=== PATIENT | male | born 1970 | race Caucasian/White ===

== ENCOUNTER 2024-10-12 08:52 | Outpatient (AMB) | payer OTHER, SELFPAY ==
--- NOTE | 2024-10-12 09:14 | MHC.OFFVIS ---
Vital Signs 10/12/24 09:22 Height 5 ft 8 in Weight 259 lb 6 oz BMI 39.4 BP 170/70 H Blood Pressure Location Lt brachial Position Sitting Pulse 85 Pulse Source Pulse Oximeter Pulse Oximetry (%) 95 Oxygen Delivery Method Room Air Intake Visit Reasons: ENP-UPPER EXTREMITIES NEUROPATHY Intake Note: Patient referred by Maria Elena for neuropathy of upper extremities Process Plant Operator Required: No Accompanied by: Self / Same As Patient Allergies clonidine Allergy (Mild, Verified 10/12/24 09:22) Dizziness phenytoin Allergy (Mild, Verified 10/12/24 09:22) Unknown penicillin Allergy (Unknown, Uncoded 02/07/24 08:27) Unknown Medication List - Last Reconciled 10/12/24 by Jackie Washburn MD albuterol sulfate 90 mcg/actuation 1 inh inhalation QID aspirin 81 mg PO DAILY citalopram 40 mg PO DAILY cyclobenzaprine 5 mg PO BEDTIME PRN dulaglutide 1.5 mg subcut QWEEK fluticasone propionate 110 mcg/actuation 1 puff inhalation BID glipizide ER 5 mg PO DAILY oxcarbazepine 150 mg PO DAILY pregabalin (Lyrica) 150 mg PO BID quetiapine 100 mg PO DAILY rosuvastatin 5 mg PO DAILY valsartan 80 mg PO DAILY HPI Comments Details: 54y/o male with h/o obesity , diabetes, HTN, smoking, h/o alcohol use, AYANNA not on CPAP, hyperlipidemia comes for further management of neuropathy. He was diagnosed with diabetes in 2012 and neuropathy [address] Reyna. He reports shooting pains in his feet , hands and also numbness. These symptoms are worse when he is resting . He takes lyrica and it helps. He also reports sharp pain in his feet , neck , hands and makes him jump . It wakes him up form sleep sometimes. The symptoms starts at 8 pm when is resting.He alps has leg movements at night- says he moves around a lot in bed and has leg spasms He feels better when he moves. He also has muscles cramps at rest that resolves with movement . he was diagnosed with sleep apnea in 2016 but could not use CPAP..He has gasping arousals, winessed apneas. loud snoring , excessive daytime sleepiness. [facility] Medical History (Updated 10/12/24 @ 10:05 by Jackie Washburn MD) Neuropathy Periodic limb movement disorder Restless legs syndrome (RLS) GERD without esophagitis AYANNA (obstructive sleep apnea) Anxiety Depression Guthrie's palsy Epilepsy History of bone marrow suppression Alcohol abuse Hyperlipidemia Severe obesity Benign essential HTN Diabetes mellitus Peripheral neuropathy Surgical History H/O thumb surgery H/O abdominal surgery S/P rotator cuff repair Family History Mother Ovarian ca Diabetes Thyroid disease Anxiety Bursitis Brother Myocardial infarct Social History Alcohol intake: former Patient Tobacco Use Status: Current everyday Tobacco user Physical Exam Vital Signs: Last Vital Signs Pulse 85 10/12/24 09:22 BP 170/70 H 10/12/24 09:22 Pulse Ox 95 10/12/24 09:22 Oxygen Delivery Method Room Air 10/12/24 09:22 BMI result Body Mass Index 39.4 Const General: cooperative and comfortable Nutritional Appearance: obese Orientation/consciousness: patient oriented x3 Eyes Pupils: Equal, round and reactive pupils present Neuro Other: mallampatti grade 4 General: patient oriented x3, tone normal, moves all extremities and no focal motor deficits Cranial nerves: Yes Equal, round and reactive pupils present, Yes Bilaterally intact EOM present, Yes Nystagmus not present, Yes Normal facial strength present, Yes Midline tongue present and Yes Symmetric palate elevation present Cognition (Neuro): normal cognition Gait exam (Neuro): Antalgic gait present Motor exam (neuro): 5/5 motor strength present throughout and Normal motor muscle tone present throughout Deep tendon reflexes (DTR's): Right triceps reflex intensity grade: 2+, Left triceps reflex intensity grade: 2+, Rt Biceps (C5, C6): 2+, Left biceps reflex intensity grade: 2+, Right brachioradialis reflex intensity grade: 2+, Left brachioradialis reflex intensity grade: 2+, Right patellar reflex intensity grade: 2+, Left patellar reflex intensity grade: 2+, Right ankle reflex intensity grade: 1+ and Left ankle reflex intensity grade: 1+ Coordination: [id number] test normal Assessment & Plan Assessment & Plan (1) Restless legs syndrome (RLS): Code(s): G25.81 - Restless legs syndrome Category: Medical (2) Periodic limb movement disorder: Comment: as per patient Code(s): G47.61 - Periodic limb movement disorder Category: Medical (3) Neuropathy: Code(s): G62.9 - Polyneuropathy, unspecified Category: Medical (4) AYANNA (obstructive sleep apnea): Code(s): G47.33 - Obstructive sleep apnea (adult) (pediatric) Category: Medical Plan He declines sleep study and CPAP treatment - says he would rather Apart from neuropathy he nava has severe sleep apnea with periodic limb movement disorder and restless legs syndrome which is contributing to his symptoms Continue lyrica 150mg bid EMG /NCS I will trial him on ropinirole XR 2mg qhs 7 pm Counseled on AYANNA - effects of untreated sleep apnea. Patient declines further assessment and management. labs- Vit D B 12 TSH Orders: Orders NE electromyogram (EMG) Today G25.81 - Restless legs syndrome, G62.9 - Polyneuropathy, unspecified NE nerve conduction velocity Today G25.81 - Restless legs syndrome, G62.9 - Polyneuropathy, unspecified Vitamin D 25-OH (D2 and D3) Today G25.81 - Restless legs syndrome, G62.9 - Polyneuropathy, unspecified Complete Blood Count Auto Diff Today G25.81 - Restless legs syndrome, G62.9 - Polyneuropathy, unspecified Comprehensive Met. Panel Today G25.81 - Restless legs syndrome, G62.9 - Polyneuropathy, unspecified TSH reflex Free T4 Today G25.81 - Restless legs syndrome, G62.9 - Polyneuropathy, unspecified Vitamin B12 and Folate Today G25.81 - Restless legs syndrome, G62.9 - Polyneuropathy, unspecified Ferritin Today G25.81 - Restless legs syndrome, G62.9 - Polyneuropathy, unspecified Medications: New ropinirole ER 2 mg PO BEDTIME 30 tabs 6RF Coding Level of Care Code New Pt Level 4 (57655) Complex EM visit Add On G2211 Diagnoses Restless legs syndrome (RLS) G25.81 Periodic limb movement disorder G47.61 Neuropathy G62.9 AYANNA (obstructive sleep apnea) G47.33
[2024-10-12 09:22] VITALS: BP 170/70; PULSE 85; O2SAT 95; BMI 39.4
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
== END 2024-10-12 10:12 | disposition home or self-care (01) ==
LOC: HO.HSMS 08:53
PROVIDERS: PCP Internal Medicine; Visit Provider Psychiatry & Neurology Neurology
DX: G25.81 Restless legs syndrome (principal); G47.61 Periodic limb movement disorder; G62.9 Polyneuropathy, unspecified; G47.33 Obstructive sleep apnea (adult) (pediatric)
CPT/HCPCS: 99204; G2211

== ENCOUNTER 2024-10-12 10:13 | Outpatient (REF) | payer OTHER, SELFPAY ==
[2024-10-12 17:45] LABS: MANUAL DIFF FLAG NO
[2024-10-12 17:48] LABS: Basophils Absolute Auto 0.1 X10*3/uL (0.0-0.2); Basophils Percent Auto 0.7 % (0-2); Eosinophils Absolute Auto 0.2 X10*3/uL (0.0-0.4); Eosinophils Percent Auto 1.7 % (0-4); Hematocrit 48.7 % (42.0-52.0); Hemoglobin 16.1 g/dl (14.0-18.0); Imm Gran Abs Auto 0.04 X10*3/uL (0.00-0.03); Imm Gran Pct Auto 0.4 % (0.0-0.4); Lymphocytes Absolute Auto 2.2 X10*3/uL (1.2-4.9); Lymphocytes Percent Auto 23.7 % (20-40); Mean Corpuscular HGB Conc 33.1 g/dl (31.0-36.0); Mean Corpuscular Hemoglobin 30.6 pg (27.0-33.0); Mean Corpuscular Volume 92.6 fL (80.0-98.0); Mean Platelet Volume 10.1 fL (9.4-12.4); Monocytes Absolute Auto 0.5 X10*3/uL (0.1-1.2); Monocytes Percent Auto 5.4 % (2-11); Neutrophils Absolute Auto 6.4 x10*3/uL (2.0-8.3); Neutrophils Percent Auto 68.1 % (45-73); Platelet Count 251 X10*3/uL (160-400); Red Blood Count 5.26 X10*6/uL (4.60-5.80); Red Cell Distribution Width 15.9 % (11.0-16.0); White Blood Count 9.4 X10*3/uL (4.8-10.8)
[2024-10-12 18:11] LABS: Alanine Aminotransferase 19 U/L (0-40); Albumin Level 4.1 g/dL (3.5-5.0); Alkaline Phosphatase 69 U/L (39-117); Anion Gap 11 (12-20); Aspartate Amino Transferase 24 U/L (5-37); Bilirubin Total 0.5 mg/dL (0.0-1.0); Blood Urea Nitrogen 11 mg/dL (9-16); Calcium 9.4 mg/dL (8.4-10.2); Carbon Dioxide 27 mmol/L (22-29); Chloride 105 mmol/L (96-108); Estimated Glomerular Filt Rate > 60; Glucose Random 130 mg/dL (60-115); Sodium 139 mmol/L (135-145); Total Protein 7.2 g/dL (6.5-8.0)
[2024-10-12 18:27] LABS: Ferritin 81 ng/mL (20-250); TSH reflex Free T4 0.79 uIU/mL (0.32-4.0)
[2024-10-12 18:36] LABS: Folate < 2.2 ng/mL (> or = 4.0); Vitamin B12 248 pg/mL (200-900)
[2024-10-18 06:33] LABS: Vitamin D 25-OH, D2 <4 ng/mL; Vitamin D 25-OH, D3 5 ng/mL; Vitamin D 25-OH, Total 5 ng/mL (30-100)
== END 2024-10-12 10:14 | disposition home or self-care (01) ==
LOC: HO.HHCL 10:13
PROVIDERS: Visit Provider Psychiatry & Neurology Neurology
DX: G25.81 Restless legs syndrome (principal); G62.9 Polyneuropathy, unspecified; G47.61 Periodic limb movement disorder; G47.33 Obstructive sleep apnea (adult) (pediatric)
CPT/HCPCS: 36415; 80053; 82306; 82607; 82728; 82746; 84443; 85025; 99202